=== PATIENT | male | born 1960 | race Caucasian/White ===

== ENCOUNTER 2018-09-25 07:47 | Day surgery (SDC) | payer OTHER ==
[~2018-09-25] VITALS: Ht 167.6 cm; Wt 107.6 kg
[2018-09-25] MEDS ORDERED: levothyroxine (08:35)
[2018-09-25] MEDS ORDERED: benazapril (08:35)
[2018-09-25 08:39] VITALS: Ht 167.6 cm; Wt 107.6 kg
--- NOTE | 2018-09-25 09:48 | PREAC ---
Date/Time of Note Date/Time of Note DATE: 09/25/18 TIME: 09:47 Anesthesia Eval and Record Evaluation Time Pre-Procedure Interview DATE: 09/25/18 TIME: 09:47 Age 57 Sex male NPO: 8 hrs Preoperative diagnosis screening Planned procedure colonoscopy Past Medical History Past Medical History: Includes Cardio: HTN Endo: Hypothyroid GI: Obesity Surgery & Anesthesia Issues No known issue Meds Anticoagulation: No Beta Rob within 24 hr: No Reason Beta Rob not given: Pt. not on B-Rob Reported Medications [benazapril] No Conflict Check 09/25/18 [levothyroxine] No Conflict Check 09/25/18 Meds reviewed: Yes Allergies Coded Allergies: No Known Allergy (Unverified , 09/25/18) Allergies Reviewed: Yes Labs/Studies Labs Reviewed: Reviewed by anesthesiologist test: N/A Pre-procedure Exam Airway: Adequate mouth opening, Adequate thyromental dist Mallampati: Mallampati II Teeth: Normal Lung: Normal Heart: Normal ASA Physical Status ASA physical status: 2 Emergency: None Planned Anesthetic General/MAC: MAC Planned Pain Management Parenteral pain med Pre-operative Attestations Prior to commencing anesthesia and surgery, the patient was re-evaluated, there was verification of: *The patient's identity *The results of appropriate recent lab work and preoperative vital signs *The above evaluation not changing prior to induction *Anesthetic plan, risk benefits, alternative and complications discussed with patient/family; questions answered; patient/family understands, accepts and wishes to proceed. JOEY WONG Sep 25, 2018 09:48
[2018-09-25 09:50] VITALS: BP 121/67; PULSE 65; RESP 26
[2018-09-25] MEDS ORDERED: LIDOCAINE 2% (SDV) 5 ML INJ ONE (09:53)
[2018-09-25] MEDS ORDERED: PROPOFOL 60 ML ONE (09:53)
[2018-09-25] MEDS ORDERED: PROPOFOL 20 ML ONE (09:54)
[2018-09-25] MEDS ORDERED: EPHEDrine SULFATE 50 MG/5 ML SYG IV PRN (10:00)
[2018-09-25] MEDS ORDERED: hydrALAzine 20 MG INJ IV PRN (10:00)
[2018-09-25] MEDS ORDERED: ONDANSETRON 4 MG INJ IV PRN (10:00)
[2018-09-25] MEDS ORDERED: LABETALOL HCL 20MG INJ IV PRN (10:00)
[2018-09-25] MEDS ORDERED: FENTAnyl 50 MCG/ML VIAL IV PRN ×2 (10:00)
[2018-09-25] MEDS ORDERED: pantoprazole (10:27)
--- NOTE | 2018-09-25 10:27 | PAC ---
Date/Time of Note Date/Time of Note DATE: 09/25/18 TIME: 10:26 Post-Anesthesia Notes Post-Anesthesia Note Last documented vital signs Vital Signs Date Temp Pulse Resp B/P (MAP) Pulse Ox O2 O2 Flow FiO2 Time Delivery Rate 09/25/18 98.2 65 26 121/67 95 Room Air 1026 (85) Activity: WNL Respiratory function: WNL Cardiovascular function: WNL Mental status: Baseline Pain reasonably controlled: Yes Hydration appropriate: Yes Nausea/Vomiting absent: Yes JOEY WONG Sep 25, 2018 10:27
[2018-09-25 10:51] VITALS: BP 127/77; PULSE 73; RESP 24
== END 2018-09-25 12:17 | disposition home or self-care (01) ==
LOC: GIL 07:47
PROVIDERS: ATTEND Internal Medicine Gastroenterology
DX: Z12.11 Encounter for screening for malignant neoplasm of colon (principal); D12.0 Benign neoplasm of cecum; K64.8 Other hemorrhoids; I10 Essential (primary) hypertension
CPT/HCPCS: 45380; 88305; Z7610